=== PATIENT | female | born 1965 | race Caucasian/White ===

== ENCOUNTER 2023-01-05 11:12 | Outpatient (OUT) | payer BC, SELFPAY ==
[2023-01-05 12:01] LABS: Basophils Absolute Auto 0.1 10^3/uL (0.0-0.1); Basophils Percent Auto 0.8 % (0.2-2.0); Eosinophils Absolute Auto 0.2 10^3/uL (0.0-0.7); Eosinophils Percent Auto 2.7 % (0.9-7.0); Hematocrit 43.9 % (36.0-48.0); Hemoglobin 14.3 g/dL (12.0-16.0); Immature Granulocytes Abs Auto 0.02 10^3/uL (0.00-0.03); Immature Granulocytes Pct Auto 0.3 % (0.0-0.5); Lymphocytes Absolute Auto 1.9 10^3/uL (1.2-3.8); Lymphocytes Percent Auto 26.4 % (20.5-60.0); Mean Corpuscular HGB Conc 32.6 g/dL (29.9-35.2); Mean Corpuscular Hemoglobin 31.6 pg (26.7-34.0); Mean Corpuscular Volume 97.1 fL (81.0-99.0); Mean Platelet Volume 10.3 fL (9.5-13.5); Monocytes Absolute Auto 0.5 10^3/uL (0.3-0.8); Monocytes Percent Auto 7.6 % (1.7-12.0); Neutrophils Absolute Auto 4.4 10^3/uL (1.4-6.5); Neutrophils Percent Auto 62.2 % (43.0-75.0); Platelet Count 183 10^3/uL (150-450); Red Blood Count 4.52 10^6/uL (4.20-5.40); Red Cell Distribution Width 13.5 % (11.0-15.0); White Blood Count 7.1 10^3/uL (4.0-11.0)
[2023-01-05 12:07] LABS: Erythrocyte Sedimentation Rate 11 mm/hr (<=30)
[2023-01-05 12:32] LABS: Alanine Aminotransferase 33 U/L (14-59); Albumin Globulin Ratio 1.1; Albumin Level 3.8 g/dL (3.4-5.0); Alkaline Phosphatase 75 U/L (46-116); Anion Gap 12.5; Aspartate Amino Transferase 26 U/L (15-37); BUN Creatinine Ratio 15.7; Bilirubin Total 0.6 mg/dL (0.2-1.0); Calcium 9.3 mg/dL (8.5-10.1); Chloride 104 mmol/L (98-107); Estimated GFR (African America >60 (>=60); Estimated GFR (Non-African Ame >60 (>=60); Globulin 3.4 g/dL; Glucose 81 mg/dL (74-106); Potassium 3.5 mmol/L (3.5-5.1); Sodium 139 mmol/L (136-145); Total Protein 7.2 g/dL (6.4-8.2)
== END 2023-01-05 11:13 | disposition home or self-care (01) ==
LOC: LAB 11:15
PROVIDERS: PCP Nurse Practitioner
DX: M15.0 Primary generalized (osteo)arthritis (principal); Z79.899 Other long term (current) drug therapy
CPT/HCPCS: 36415; 80053; 85025; 85652

== ENCOUNTER 2023-03-21 08:57 | Outpatient (OUT) | payer BC, SELFPAY ==
[2023-03-22 14:14] LABS: ACTH, Plasma 15.9 pg/mL (7.2-63.3)
[2023-03-22 16:11] LABS: Cortisol - AM <0.1 ug/dL (6.2-19.4)
== END 2023-03-21 08:58 | disposition home or self-care (01) ==
LOC: LAB 08:58
PROVIDERS: PCP Nurse Practitioner
DX: E25.0 Congenital adrenogenital disorders associated with enzyme deficiency (principal)
CPT/HCPCS: 36415; 82024; 82533

== ENCOUNTER 2023-04-10 13:50 | Outpatient (OUT) | payer BC, SELFPAY ==
[2023-04-10 14:53] LABS: Basophils Percent Auto 0.6 % (0.2-2.0); Eosinophils Absolute Auto 0.1 10^3/uL (0.0-0.7); Eosinophils Percent Auto 0.9 % (0.9-7.0); Hematocrit 39.8 % (36.0-48.0); Hemoglobin 12.8 g/dL (12.0-16.0); Immature Granulocytes Abs Auto 0.02 10^3/uL (0.00-0.03); Immature Granulocytes Pct Auto 0.3 % (0.0-0.5); Lymphocytes Absolute Auto 0.8 10^3/uL (1.2-3.8); Lymphocytes Percent Auto 11.6 % (20.5-60.0); Mean Corpuscular HGB Conc 32.2 g/dL (29.9-35.2); Mean Corpuscular Hemoglobin 32.6 pg (26.7-34.0); Mean Corpuscular Volume 101.3 fL (81.0-99.0); Mean Platelet Volume 10.7 fL (9.5-13.5); Monocytes Absolute Auto 0.3 10^3/uL (0.3-0.8); Monocytes Percent Auto 4.6 % (1.7-12.0); Neutrophils Absolute Auto 5.7 10^3/uL (1.4-6.5); Platelet Count 171 10^3/uL (150-450); Red Blood Count 3.93 10^6/uL (4.20-5.40); Red Cell Distribution Width 13.4 % (11.0-15.0); White Blood Count 6.9 10^3/uL (4.0-11.0)
[2023-04-10 15:00] LABS: Erythrocyte Sedimentation Rate 21 mm/hr (<=30)
[2023-04-10 16:20] LABS: Alanine Aminotransferase 28 U/L (14-59); Albumin Globulin Ratio 1.2; Albumin Level 3.6 g/dL (3.4-5.0); Alkaline Phosphatase 59 U/L (46-116); Anion Gap 12.7; Aspartate Amino Transferase 22 U/L (15-37); Bilirubin Total 0.5 mg/dL (0.2-1.0); Calcium 8.1 mg/dL (8.5-10.1); Carbon Dioxide 27.4 mmol/L (21.0-32.0); Chloride 104 mmol/L (98-107); Estimated GFR (African America >60 (>=60); Estimated GFR (Non-African Ame >60 (>=60); Globulin 3.1 g/dL; Glucose 112 mg/dL (74-106); Potassium 4.1 mmol/L (3.5-5.1); Sodium 140 mmol/L (136-145); Total Protein 6.7 g/dL (6.4-8.2)
== END 2023-04-10 13:51 | disposition home or self-care (01) ==
PROVIDERS: PCP Nurse Practitioner
DX: M15.0 Primary generalized (osteo)arthritis (principal); Z79.899 Other long term (current) drug therapy
CPT/HCPCS: 36415; 80053; 85025; 85652

== ENCOUNTER 2025-03-30 09:44 | Outpatient (OUT) | payer BC, SELFPAY ==
--- NOTE | 2025-03-30 10:00 | CA_ITS ---
Patient Name: MARY ANGULO MR#: [id number] : 1965 Exam Date: 03/30/2025 Ordering Doctor: DR PEYTON FLYNN M.D. ECHOCARDIOGRAM REPORT PROCEDURE: CA ECHO DOPPLER COMPLETE INDICATIONS: Dizziness, cardiac stent COMPARISON: None. DESCRIPTION: COMPLETE ECHOCARDIOGRAM Real-time transthoracic echocardiography with 2D, M-mode, spectral and color flow Doppler performed. QUALITY: Technical quality was good. LEFT VENTRICLE: Normal chamber size. Proximal septal hypertrophy (sigmoid septum). Normal systolic function. LV EF: Normal left ventricular ejection fraction, (60-65%). DIASTOLIC: Diastolic function is indeterminate. ATRIAL SEPTUM: Visually appears intact. LEFT ATRIUM: Moderate dilatation. RIGHT ATRIUM: Mild dilatation. RIGHT VENTRICLE: Mild chamber dilatation. Normal right ventricular systolic function. TRICUSPID VALVE: Normal mobility and thickness. No stenosis with trivial regurgitation. No evidence of pulmonary hypertension. RVSP 19 mmHg MITRAL VALVE: Normal mobility and thickness. No evidence of mitral valve stenosis. There is no mitral annular calcification. Trivial mitral regurgitation. AORTIC VALVE: Normal trileaflet appearance. No visible sclerosis. Normal leaflet mobility. No evidence of aortic valve stenosis. No aortic regurgitation. AORTIC ROOT: Normal diameter and appearance, measuring 3.5 cm. Ascending aorta is normal in size, measuring 3.2 cm. PULMONIC VALVE: Normal thickness and mobility. No stenosis. Trivial regurgitation. PERICARDIUM: No evidence of pericardial effusion. IVC: Collapses with inspiration. PLEURA: CONCLUSION: 1. The left ventricle is normal in size and exhibits normal systolic function. Estimated LVEF is 60 to 65%. 2. Mildly dilated right ventricle with normal systolic function. 3. Mild to moderate biatrial dilatation. 4. No significant valvular dysfunction. 5. Normal right-sided pressures. Adult Echocardiography Procedure Report Left Ventricle LVEDD (3.7 - 5.6 cm): 4.00 cm LVESD (2.2 - 4.0 cm): 2.79 cm LVIVS thickness (0.6 - 1.2 cm): 1.70 cm LVPW thickness (0.5 - 1.0 cm): 0.99 cm e': 0.09 m/s E - e': 5.93 LVOT Max Gradient: 3.32 mm[Hg] LVOT Area (cm2): 0.91 m/s Peak Velocity (LVOT): 0.91 m/s Mean Velocity (LVOT): 0.59 m/s LVOT Diameter 2.38 cm Left Ventricular Ejection Fraction: 60-65% Left Atrium LA Volume Index (2D A2C): 46.84 ml/m2 Left Atrium Systolic Dimension: 3.61 cm Mitral Valve MV E to A Ratio: 0.93 Mitral Valve A-Wave Peak Velocity: 0.56 m/s Mitral Valve E-Wave Peak Velocity: 0.52 m/s Right Ventricle Aorta AO Root Diam: 3.54 cm Ascending Ao Diam: 3.20 cm Aortic Valve Tricuspid Valve Peak Velocity (Regurgitant Flow): 1.86 m/s, 2.01 m/s Pulmonic Valve Peak Gradient: 4.51 mm[Hg], 5.27 mm[Hg] Right Atrium Right Atrium Systolic Pressure: 43.51 ml, 43.51 ml Dictated by: Mason Higgins M.D. on 03/30/2025 at 17:39 Approved by: Mason Higgins M.D. on 03/30/2025 at 17:44
== END 2025-03-30 09:45 | disposition home or self-care (01) ==
LOC: CARD 09:48
PROVIDERS: PCP Nurse Practitioner; Visit Provider Internal Medicine Interventional Cardiology
DX: I25.10 Atherosclerotic heart disease of native coronary artery without angina pectoris (principal); I25.83 Coronary atherosclerosis due to lipid rich plaque; Z95.5 Presence of coronary angioplasty implant and graft; R42 Dizziness and giddiness
CPT/HCPCS: 93306

== ENCOUNTER 2025-07-01 07:27 | Outpatient (OUT) | payer BC, SELFPAY ==
--- OUTSIDE RECORDS SUMMARY | 2025-06-30 23:59 | XMS_ITS | Continuity of Care Document ---
Author Organization [facility] Address Unknown Care Team Providers Care Furnishings Conservator Name Role Phone Irena Sagastume Primary Care Physician Encounter FT_FIN [id number] Date(s): 06/30/25 - 06/30/25 [place] [address] [address] [place], [place] [address] Discharge Disposition: Home (Routine DC) Attending Physician: Irena Ardon Admitting Physician: Irena Ardon Encounter Type: Lab Drop off Allergies, Adverse Reactions, Alerts SubstanceCriticalitySeverityReactionReaction SeverityStatusatorvastatinOther: See CommentsActiveshellfishUnknownActive Treatment Plan Diagnostic Tests Pending * Urine Culture 06/30/25 Immunizations Given and Recorded VaccineDateStatusRefusal Reasoninfluenza virus vaccine, inactivated08/03/23 Recordedinfluenza virus vaccine, jooixudhvac96/11/31JldatkkeLHRH-HlK-4 (COVID- 19) mRNAMUL.ORD![id number]-KyO-1 (COVID-19) mRNA BNT-162b2 vax 06/24/2129FwcrqekqCPQS-OoD-1 (COVID-19) mRNA BNT-162b2 vax5//20KdxhfutgKVIW-XiA-4 (COVID-19) mRNA BNT-162b2 vax4//Recorded Medications cephalexin 500 mg Cap 500 mg = 1 cap(s), Oral, q12hr, # 20 cap(s), Refills(s) 0, Pharmacy: [facility]/pharmacy #[id number], 153, cm, 06/30/25 11:19:00 EST, Height/Length Dosing, 67.3, kg, 06/30/25 11:19:00 EST, Weight Dosing Start Date: 06/30/25 Status: Ordered Medication Dispense Status: Completed Quantity: 20.0 Unit: cap(s) Total Allowed Fills: 1 Fills Dispensed: 0 dexamethasone 0.5 mg Tab 0.5 mg = 1 tab(s), Oral, Daily, Refills(s) 0 Start Date: 11/28/23 Status: Ordered Medication Dispense Status: Completed Total Allowed Fills: 1 Fills Dispensed: 0 DOSOKAP 137.5-200 MCG TABLET TAKE 1 TABLET BY MOUTH EVERY DAY Start Date: 10/31/22 Status: Ordered Medication Dispense Status: Completed Total Allowed Fills: 1 Fills Dispensed: 0 estradiol 0.1 mg/g Vag Crm APPLY VAGINALLY DAILY AT BEDTIME Start Date: 10/31/22 Status: Ordered Medication Dispense Status: Completed Total Allowed Fills: 1 Fills Dispensed: 0 gabapentin 100 mg Cap See Instructions, TAKE 2 CAPSULES BY MOUTH AT BEDTIME, # 60 cap(s), Refills(s) 5, [id number], cm, 06/30/25 11:19:00 EST, Height/Length Dosing, 67.3, kg, 06/30/25 11:19:00 EST, Weight Dosing Start Date: 06/30/25 Status: Ordered Medication Dispense Status: Completed Quantity: 60.0 Unit: cap(s) Total Allowed Fills: 6 Fills Dispensed: 0 hydroxychloroquine 200 mg Tab 90 EA, 0 Refill(s), TAKE 1 TABLET BY MOUTH EVERY DAY, Refills(s) 0 Start Date: 05/27/24 Status: Ordered Medication Dispense Status: Completed Total Allowed Fills: 1 Fills Dispensed: 0 ondansetron 4 mg Tab 4 mg = 1 tab(s), TAKE 2 TABLETS BY MOUTH EVERY 8 HOURS NEEDED FOR NAUSEA OR VOMITING FOR UP TO 7DAYS Start Date: 03/28/24 Status: Ordered Medication Dispense Status: Completed Total Allowed Fills: 1 Fills Dispensed: 0 oxybutynin 5 mg Tab 5 mg = 1 tab(s), Oral, Bedtime, # 30 tab(s), Refills(s) 11, Pharmacy: [facility]/pharmacy #[id number], 153, cm, 04/17/24 12:54:00 EDT, Height/Length Dosing, 74.1, kg, 04/17/24 12:54:00 EDT, Weight Dosing Start Date: 04/17/24 Status: Ordered Medication Dispense Status: Completed Quantity: 30.0 Unit: tab(s) Total Allowed Fills: 12 Fills Dispensed: 0 rosuvastatin 40 mg Tab 40 mg = 1 tab(s), Oral, Daily, # 90 tab(s), Refills(s) 0 Start Date: 10/31/22 Status: Ordered Medication Dispense Status: Completed Quantity: 90.0 Unit: tab(s) Total Allowed Fills: 1 Fills Dispensed: 0 semaglutide Refills(s) 0 Start Date: 03/28/24 Status: Ordered Medication Dispense Status: Completed Total Allowed Fills: 1 Fills Dispensed: 0 traMADOL 50 mg Tab TAKE 1 TABLET BY MOUTH TWICE A DAY Start Date: 10/31/22 Status: Ordered Medication Dispense Status: Completed Total Allowed Fills: 1 Fills Dispensed: 0 Problem List ConditionConfirmationCourseEffective DatesStatusHealth StatusInformantBMI 31.0-31.9,adultConfirmedActiveCongenital adrenal hyperplasiaConfirmedActiveCAD (coronary artery disease)ConfirmedActiveAtherosclerotic heart disease of [place] coronary artery with unspecified angina pectorisConfirmedActiveFatigueConfirmed ActiveHot flashesConfirmedActiveGanglion cyst of tendon sheath of right hand ConfirmedActiveGERD (gastroesophageal reflux disease)ConfirmedActive HyperlipidemiaConfirmedActiveUrinary frequencyConfirmedActiveSkin infection ConfirmedActiveInflammatory polyarthropathyConfirmedActiveMass of right hand ConfirmedActiveMenopausal symptomsConfirmedActiveClass 1 obesity with body mass index (BMI) of 31.0 to 31.9 in adultConfirmedActivePrimary osteoarthritis of left kneeConfirmedActiveBMI 28.0-28.9,adultConfirmedActiveAnnual physical exam ConfirmedActiveRecurrent UTIConfirmedActiveSwelling of joint, hand, right ConfirmedActiveUrinary tract infectionConfirmedActiveVaginal odorConfirmedActive Procedures ProcedureDateRelated DiagnosisBody SiteStatusmiddle chest skin cancer removed 02/13/2330XvevzcfuaUcbrvcsqesf2VysnchwaqQGS - Nwqitzehssmhpnktlxwvmivsjc0Nfrvzxjsg History of placement of stent for coronary artery disease (situation)Completed Laparoscopic pepxjtshuzxnpmp5OpsywauobMjqubukdinxha of qoxt4Dithahwma 1Dr. Wiecek [address] 2Dr. Wiecek 2012 [id number] Social History Social History TypeResponseSmoking StatusFormer smoker, quit more than 30 days ago; Tobacco Use: quit 22 years ago entered on: 06/13/24Birth SexFemaleSex RepresentationFemale (finding) Patient Care team information Care Team Personnel Name: Irena Ardon Position: FT Ambulatory - Primary Care - ERLINDA Member Role: Primary Care Physician [address]: [address] [place] [address]- Telecom: Care Team Related Persons Name: MARY ANGULO Name: MARY ANGULO Name: MARY ANGULO Name: SONYA QUINTERO Insurance Providers Guarantor name: MARY ANGULO Health Plan Information #: 1 Payer: Alonso Payer Identifier: [id number] Member Number: [id number] Group Number: [id number] Subscriber Identifier: [id number] Relationship to Subscriber: spouse Coverage Type: PRIVATE HEALTH INSURANCE Coverage Verification Date: Telecom: [phone] Address: [facility] [id number]
--- OUTSIDE RECORDS SUMMARY | 2025-06-30 23:59 | XMS_ITS | Continuity of Care Document ---
Author Organization [facility] Address [address] [place] [id number] Care Team Providers Care Medical Surgical Tech Name Role Phone Irena Sagastume Primary Care Physician Encounter FT_AMBFIN [id number] Date(s): 06/30/25 - 06/30/25 [facility] [address] [place] [address]- Encounter Diagnosis Dysuria(Discharge Diagnosis) - 06/30/25 BMI 28.0-28.9,adult(Discharge Diagnosis) - 06/30/25 Discharge Disposition: Home (Routine DC) Attending Physician: Irena Ardon Encounter Type: Clinic Allergies, Adverse Reactions, Alerts SubstanceCriticalitySeverityReactionReaction SeverityStatusatorvastatinOther: See CommentsActiveshellfishUnknownActive Treatment Plan Diagnostic Tests Pending * Cortisol 06/30/25 * DHEAS 06/30/25 * Estradiol Level 06/30/25 * Estrone Lvl 06/30/25 * Progesterone Level 06/30/25 * Sex Horm Bind Glob 06/30/25 * Testosterone Level Free 06/30/25 * Testosterone Level Total 06/30/25 * Vitamin D 25 Hydroxy 06/30/25 Functional Status 06/30/25 Symptomatic After Exposure to ContagionNoSymptomatic After Travel High-Risk Area NoDroplet, Contact Isolation VerificationN/AAirborne,Contact Isolation VerificationN/A Immunizations Given and Recorded VaccineDateStatusRefusal Reasoninfluenza virus vaccine, inactivated08/03/23 Recordedinfluenza virus vaccine, vlhakmbtikl39/11/74TeziahgmXIDQ-RkH-2 (COVID- 19) mRNAMUL.ORD![id number]/05/3011PzqtflgtSHPO-ZmZ-3 (COVID-19) mRNA BNT-162b2 vax 12/32XgxdwuoyOUOG-AxS-6 (COVID-19) mRNA BNT-162b2 vax5//20SrwcnzojQHCB-HiN-1 (COVID-19) mRNA BNT-162b2 vax4/15/Recorded Medications cephalexin 500 mg Cap 500 mg = 1 cap(s), Oral, q12hr, # 20 cap(s), Refills(s) 0, [id number], cm, 06/30/25 11:19:00 [...] BEDTIME, # 60 cap(s), Refills(s) 5, Pharmacy: [facility]/pharmacy #[id number], 153, cm, 06/30/25 11:19:00 EST, Height/Length [...] Bedtime, # 30 tab(s), Refills(s) 11, Pharmacy: [facility]/pharmacy #[id number], 153, cm, 04/17/24 12:54:00 EDT, Height/Length [...] hyperplasiaConfirmedActiveCAD (coronary artery disease)ConfirmedActiveAtherosclerotic heart disease of [place] coronary artery with unspecified angina pectorisConfirmedActiveFatigueConfirmed ActiveHot [...] ProcedureDateRelated DiagnosisBody SiteStatusmiddle chest skin cancer removed 02/13/2325NauucnbljDknmddgvuxb1WwuygirppOFW - Eiehbstaifiabaengazfuyaudh4Bmzhbyrig History of placement of stent for coronary artery disease (situation)Completed Laparoscopic lzwppdxgkcjypem4XginssariVdikrtdmzttye of qfwk5Aodacmztu 1Dr. Wiecek 2011 2Dr. Wiecek 2011 [id number] Vital Signs Most recent to oldest [Reference Range]:1Temperature Temporal Artery [36.3-37.8 DegC]36.5 DegC (06/30/25 11:16 AM)Peripheral Pulse Rate [60-100 bpm]84 bpm (06/30/25 11:16 AM)Respiratory Rate [14-20 br/min]18 br/min (06/30/25 11:16 AM)Blood Pressure [89-139/59-89 mmHg]116/66mmHg (06/30/25 11:16 AM)Blood Pressure LocationLeft arm (06/30/25 11:16 AM)SpO2 [89 %]98 % (06/30/25 11:16 AM) Social History Social History TypeResponseSmoking StatusFormer smoker, quit more than 30 days ago; Tobacco Use: quit 22 years ago entered on: 06/13/24Birth SexFemaleSex RepresentationFemale (finding) Patient Care team information Care Team Personnel Name: Irena Ardon Position: FT Ambulatory - Primary Care - ERLINDA Member Role: Primary Care Physician Address: [address] [place] [phone]- Telecom: Care Team Related Persons Name: MARY ANGULO Name: MARY ANGULO Name: MARY ANGULO Name: SONYA QUINTERO Insurance Providers Guarantor name: MARY ANGULO [facility] Plan Information #: 1 Payer: Alonso Payer Identifier: [id number] Member Number: [id number] Group Number: [id number] Subscriber Identifier: [id number] Relationship to Subscriber: spouse Coverage Type: PRIVATE HEALTH INSURANCE Coverage Verification Date: Telecom: [phone] Address: [address]
--- OUTSIDE RECORDS SUMMARY | 2025-07-01 07:34 | XMS_ITS | Clinical Summary ---
Author Organization [facility] Address [address] [place] [address] Care Team Providers Care Correctional Medicine Physician Name Role Phone Peggy Bravo MD Primary Care Provider [phone] Kyler Wylie DO Unavailable [phone] Allergies Active AllergyReactionsCriticalityNoted DateCommentsAtorvastatin CalciumOther: See CyyfwppeJvseax57/29/2014 Leg cramps Medications MedicationSigDispense QuantityRefillsLast FilledStart DateEnd DateStatus dexamethasone (DECADRON) 0.5 mg tablet TAKE 1 TABLET DAILY WITH BREAKFAST 90 tablet Active vitamin D3-vitamin K2 (DOSOQUIN) 5,500-200 unit-mcg tab Take 1 tablet by mouth once daily.07/17/2019Active Etodolac 500 mg tablet Take 2 tablets by mouth twice daily.08/21/2019Active rosuvastatin (CRESTOR) 20 mg tablet Take 1 tablet by mouth once daily. 90 tablet Active hydrocortisone (CORTEF) 10 mg tablet Take 1 tablet by mouth once daily. Take 3 tablets as needed 40 tablet 11012/29/2019Active Active Problems ProblemNoted DateDiagnosed DateObesity (BMI 30-39.9)06/06/2017Esotropia, bkscklxxypy46/23/2017 Overview (04/30/2017): Added automatically from request for surgery [id number] Lyqrfvvr46/23/2017 Overview (04/30/2017): Added automatically from request for surgery [id number] Ktfkcasptvrsmvweibtr81/25/2014S/P coronary artery stent boqatbnee75/25/2014 Statin vtyinkzbgjy79/25/2014Elevated Lp(a)04/02/2014Congenital adrenal knnfugrqfxg35/29/8392Thubwkkwtoievo99/29/2014CAD (coronary artery disease) 03/06/2014 Resolved Problems ProblemNoted DateDiagnosed DateResolved VjmiLufueaa57 Family History Medical HistoryRelationCommentsCoronary Artery DiseaseFatherdied age 80 prostate CA; CAD age 70'sNo Ocular DiseaseFatherNo Ocular DiseaseMothercarcinoid tumor Motherdied age 77 carcinoid tumorOtherOtherFH of CAHRelationStatusCommentsFather MotherOther Social History Tobacco UseTypesPacks/DayYears UsedDateSmoking Tobacco: FormerCigarettes0.520 07/09/1981 - 07/09/2001Smokeless Tobacco: Never Tobacco Cessation:Counseling Given: No Alcohol UseStandard Drinks/WeekCommentsYes0 (1 standard drink = 0.6 oz pure alcohol)none recentlyArea Deprivation IndexAnswerDate RecordedNational Score (1- 100), lower number is lower riskNot on file06/15/2020State Score (1-10), lower number is lower riskNot on file06/15/2020Data from: https://www.neighborhoodatlas.[facility].edu/. Last address used for calculationNot on file06/15/2020CommentsNoSex and Gender Information ValueDate RecordedSex Assigned at BirthNot on fileLegal FhyNmjqht13/02/2012 9:49 AM ESTGender IdentityNot on fileSexual OrientationNot on fileOccupationIndustry Job Start DateJob End Datebusiness ownerNot on fileNot on fileNot on file Last Filed Vital Signs Vital SignReadingTime TakenCommentsBlood Gftfgvbn669/7002 10:17 AM EST Fczdd894308/21/2019 10:17 AM GMFTrwrahjwifp16.2 ??C (97.2 ??F)06/18/2017 3:00 PM ESTRespiratory Dwww103908/19/2016 3:30 PM ESTOxygen Piseudfkqh27%06/18/2017 3:30 PM ESTInhaled Oxygen Concentration--Nvjkxj81.7 kg (200 lb)02/05/2020 4:21 PM EDT Evwcfg479.9 cm (5' 1 )02/05/2020 4:21 PM EDTBody Mass Index37.7902/05/2020 4:21 PM EDT Plan of Treatment Health MaintenanceDue DateLast DoneCommentsAnxiety Bsetuozov96/07/1981Depression Ppadakyop81/07/1981HIV Oqtpowehx67/07/1981Hepatitis C Ewsqsulmu37/07/1981 DTaP,Tdap,Td Vaccine (1 - Tdap)1982Cervical Cancer Pnyiquqyh62/07/1984 Mammogram Yhfkdtjuh99/07/2003CT Lfxkgykyiibp91/07/2008Cologuard (FIT-DNA) 02/13/20088205Juwmobtumze49/07/2008Colorectal Cancer Kngjyhfgz50/07/2008Fecal Occult Blood02/13/20082147Oeciwyonokgfr84/07/2008Pneumococcal Vaccine: 50+ (1 of 1 - PCV) 2013Shingrix Vaccine (1 of 2)2013Diabetes Qkqkhbarr51/14/2022 05/22/2019, 05/22/2019, 10/01/2018, Additional history existsLipid Screening 3108/04/2017, 06/27/2016, 10/08/2015, Additional history existsCovid-19 Vaccine (1 - 2024- season)2025Influenza Vaccine (#1)2025RSV Vaccine (1 - 1-dose 75+ series)2038 Procedures Procedure NamePriorityDate/TimeAssociated DiagnosisCommentsCOMPREHENSIVE METABOLIC UTRVLVoevhkz57/14/2019 12:05 PM EST Hyperlipidemia, unspecified hyperlipidemia type Congenital adrenal hyperplasia (HCC) Statin intolerance LIPID PANEL, DZLREMZDdbxnrv84/27/2018 12:53 PM EST Congenital adrenal hyperplasia (HCC) Hyperlipidemia, unspecified hyperlipidemia type Coronary artery disease involving pechanga coronary artery of pechanga heart without angina pectoris Hypertriglyceridemia Statin intolerance 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 from Last 3 Months or Most Recently Relevant to Health Maintenance Results * (ABNORMAL) COMP METABOLIC PANEL (05/22/2019 12:05 PM EST)ComponentValueRef RangeTest MethodAnalysis TimePerformed AtPathologist SignatureProtein, Total 6.46.3 - 8.0 g/dL05/22/2019 6:44 PM ESTGal[facility] Hospitalveland Clinic LaboratoriesAlbumin3.9 3.9 - 4.9 g/dL05/22/2019 6:44 PM ESTK[facility] LaboratoriesCalcium9.48.5 - 10.2 mg/dL05/22/2019 6:44 PM ESTK[facility] Health [facility] LaboratoriesBilirubin, Total0.50.2 - 1.3 mg/dL05/22/2019 6:44 PM ESTK[facility] Laboratories Alkaline Pekzoqbgtab3838 - 123 U/L107/22/2018 6:44 PM ESTK[facility]tering [facility] OlcfgutsjipeLNL4242 - 35 U/L107/22/2018 6:44 PM ESTK[facility] KfhquvkkqtclKljjnhn47(L)74 - 99 mg/dL05/22/2019 6:44 PM [facility] LaboratoriesComment: The [place] Diabetes Association (ADA) provides guidance for cutoff values for fasting glucose and random glucose. The ADA defines fasting as no caloric intake for at least 8 hours. Fasting plasma glucose results between 100 to 125 mg/dL indicate increased risk for diabetes (prediabetes). Fasting plasma glucose results greater than or equal to 126 mg/dL meet the criteria for diagnosis of diabetes. In the absence of unequivocal hyperglycemia, results should be confirmed by repeat testing. In a patient with classic symptoms of hyperglycemia or hyperglycemic crisis, random plasma glucose results greater than or equal to 200 mg/dL meet the criteria for diagnosis of diabetes. Reference: Standards of Medical Care in Diabetes 2016, [place] Diabetes Association. Diabetes Care. 2016.39(Suppl 1). ANM212 - 21 mg/dL05/22/2019 6:44 PM ESTKettering Health [facility] LaboratoriesCreatinine 0.810.58 - 0.96 mg/dL05/22/2019 6:44 PM [facility] LaboratoriesSodium 420392 - 144 mmol/L107/22/2018 6:44 PM ESTJefferson Clinic LaboratoriesPotassium 4.03.7 - 5.1 mmol/L107/22/2018 6:44 PM ESTKettering Health [facility] LaboratoriesChloride 107(H)97 - 105 mmol/L107/22/2018 6:44 PM [facility] JbleabuhypclPQ44423 - 30 mmol/L107/22/2018 6:44 PM [facility] LaboratoriesAnion Jls869 - 18 mmol/L107/22/2018 6:44 PM [facility] GvrnaqlwsgpaQBG535 - 38 U/L 05/22/2019 6:44 PM [facility] LaboratorieseGFR->60 05/22/2019 6:44 PM [facility] LaboratorieseGFR-All Other Races>60. 05/22/2019 6:44 PM [facility] LaboratoriesComment: eGFR (Estimated GFR) Units of measure: mL/min/1.73 meters squared eGFR is derived from the reexpressed MDRD Study equation using the following parameters: serum creatinine, age, gender and race. The creatinine assay has been calibrated to be traceable to IDMS. An eGFR <60 mL/min/1.73m2 for >3 months is consistent with chronic kidney disease. Refer to KDOQI guidelines for clinical interpretation. In patients with unstable renal function, e.g. those with acute kidney injury, the eGFR may not accurately reflect actual GFR. Specimen (Source)Anatomical Location / LateralityCollection Method / Volume Collection TimeReceived TimeBlood specimen (specimen)BLOOD SPECIMEN / Unknown 05/22/2019 12:05 PM EST05/22/2019 12:07 PM EST Narrative Authorizing ProviderResult TypeResult StatusBetul Rosibel Reece MDLABORATORYFinal ResultPerforming OrganizationAddressCity/State/ZIP CodePhone Number [facility] [address] [facility] [place] [address] [facility] [address] [place] [address] * (ABNORMAL) LIPID PANEL BASIC (06/04/2018 12:53 PM EST)ComponentValueRef Range Test MethodAnalysis TimePerformed AtPathologist SignatureCholesterol, Peyzh382 (H)<200 mg/dL06/04/2018 5:28 PM [facility] LABORATORYComment: <200 mg/dL, Desirable 200-239 mg/dL, Borderline high >239 mg/dL, High Lriyzpaiofck633(H)<150 mg/dL06/04/2018 5:28 PM [facility] LABORATORYComment: <150 mg/dL, Normal 150-199 mg/dL, Borderline high 200-499 mg/dL, High >499 mg/dL, Very high HDL Awfniwtvroc68>39 mg/dL06/04/2018 5:28 PM [facility] Comment: 40-59 mg/dL, Acceptable >59 mg/dL, High: Negative risk factor for coronary heart disease <40 mg/dL, Low: Positive risk factor for coronary heart disease LDL Cholesterol, Narnjsdhhz395(H)<100 mg/dL06/04/2018 5:28 PM [facility] LABORATORYComment: <100 mg/dL, Optimal 100-129 mg/dL, Near optimal/above optimal 130-159 mg/dL, Borderline high 160-189 mg/dL, High >189 mg/dL, Very high Secondary prevention optimal LDL Cholesterol levels are recommended to be < 70 mg/dL Non HDL Ytlqpucqhsz667(H)<130 mg/dL06/04/2018 5:28 PM [facility] LABORATORYComment: <130 mg/dL, Optimal 130-159 mg/dL, Near optimal/above optimal 160-189 mg/dL, Borderline high 190-219 mg/dL, High >219 mg/dL, Very high Secondary prevention optimal non HDL Cholesterol levels are recommended to be < 100 mg/dL Fasting Czbo04iam74/27/2018 12:55 PM [facility] LABORATORYVLDL Brifrbsmuaf06(H)<30 mg/dL06/04/2018 5:28 PM [facility] TC:HDL Ratio3.86<5.10108/04/2017 5:28 PM [facility] LDL:HDL Ratio2.11<2.5406/04/2018 5:28 PM [facility] Comment: Reference: 1. National Cholesterol Education Program ATP III Guideline At-A-Glance Quick Desk Reference: National Heart, Lung, and Blood [place]. National Institutes of Health. 2001: NIH Publication No. 01-3305. 2. An International Atherosclerosis Society position paper: global recommendations for the management of dyslipidemia: executive summary, Atherosclerosis. 2014: 232(2):410-413. Specimen (Source)Anatomical Location / LateralityCollection Method / Volume Collection TimeReceived TimeBlood specimen (specimen)06/04/2018 12:53 PM EST 06/04/2018 12:55 PM EST Narrative Authorizing ProviderResult TypeResult StatusBetgalina Reece MDLABORATORYFinal ResultPerforming OrganizationAddressCity/State/ZIP CodePhone Number [facility] [address] [place] [address] from Last 3 Months or Most Recently Relevant to Health Maintenance Insurance Care Teams Team MemberRelationshipSpecialtyStart DateEnd Date Peggy Bravo MD [address] [place] [address] PCP - General09/20/05 Kyler Wylie DO [facility] [address] [place] [address] ReferringOphthalmology11/27/16
--- OUTSIDE RECORDS SUMMARY | 2025-07-01 07:34 | XMS_ITS | Clinical Summary ---
Author Organization [facility] Address [address] 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 Name Role Phone Peggy Bravo MD Primary Care Provider [phone] Allergies Active AllergyReactionsCriticalityNoted DateCommentsAtorvastatinUnknown,Other Etcvpd0603/05/2014 Leg cramps Leg cramps Shellfish Containing GjcovzydWwhmiqt39/13/2024Shellfish FobvlohBixhzgm68/19/2022 Medications MedicationSigDispense QuantityRefillsLast FilledStart DateEnd DateStatus aspirin 81 mg chewable tablet Chew and swallow 1 tablet (81 mg) once daily.03/09/2021ctive rosuvastatin (Crestor) 40 mg tablet Take 1 tablet (40 mg) by mouth once daily.08/23/2022ctive traMADol (Ultram) 50 mg tablet Take 1 tablet (50 mg) by mouth 2 times a day.Active ondansetron (Zofran) 4 mg tablet Indications:Adrenal hyperplasia syndrome, congenital (HHS-HCC)TAKE 2 TABLETS BY MOUTH EVERY 8 HOURS NEEDED FOR NAUSEA OR VOMITING FOR UP TO 7 DAYS 9 tablet 5Active dexAMETHasone (Decadron) 0.5 mg tablet Indications:Adrenal hyperplasia, congenital (HHS-HCC)Take 1 tablet (0.5 mg) by mouth once daily. 90 tablet 5Active semaglutide (weight loss) Indications:Class 3 severe obesity due to excess calories with body mass index (BMI) of 40.0 to 44.9 in adult, unspecified whether serious comorbidity present ([facility]-HCC)Inject 1.8mg under the skin once a week 2 mL 5125Active semaglutide (weight loss) Indications:Adrenal hyperplasia, congenital (HHS-HCC)1.2MG-Semaglutide Base 1.2mg Niacinamide 0.66mg Methylcobalamin 2.6mcg/0.33mL 2 mL 505108/11/2024Discontinued(Reorder) Active Problems ProblemNoted DateDiagnosed DateBMI 27.0-27.9,adult02/19/2025drenal hyperplasia, bzigukeohz95/14/2025 Family History Medical HistoryRelationNameCommentsCoronary artery diseaseFatherProstate cancer FatherCongenital adrenal hyperplasiaSisterRelationNameStatusCommentsFather DeceasedSister Social History Tobacco UseTypesPacks/DayYears UsedDateSmoking Tobacco: FormerCigarettes Smokeless Tobacco: NeverAlcohol UseStandard Drinks/WeekCommentsNot Currently0 (1 standard drink = 0.6 oz pure alcohol)PHQ-2AnswerDate RecordedPatient Health Questionnaire-2 Mtpoa242CommentsUnknownSex and Gender InformationValueDate RecordedSex Assigned at BirthNot on fileLegal SexFemale 06/02/2022 9:41 AM ESTGender IdentityNot on fileSexual OrientationNot on file Last Filed Vital Signs Vital SignReadingTime TakenCommentsBlood Jchvytfp918/9108/21/2023 10:00 AM EST Mqile2167/13/2024 10:00 AM SMPJfpypettvic45.5 ??C (97.7 ??F)08/21/2023 9:13 AM ESTRespiratory Mikh106708/21/2023 9:13 AM ESTOxygen Saturation--Inhaled Oxygen Concentration--Yaxxdd70.9 kg (140 lb 12.8 oz)02/19/2025 11:22 AM NSXXervsp747.9 cm (5' 1 )02/19/2025 11:22 AM EDTBody Mass Index26.6002/19/2025 11:22 AM EDT Plan of Treatment DateTypeDepartmentCare Team (Latest Contact Info)Moawrrmvntx59/20/2026 11:30 AM [facility] [address] [facility] [address] [place] [phone] [place] [address] Department of Medicine-Endocrinology [place] [id number] Health MaintenanceDue DateLast DoneCommentsCT Rcstffjlrhyq1963Colonoscopy 1963Colorectal Cancer Fhqdjcnko1963FIT-DNA (Cologuard)1963FIT 1963HIV Trasrfjuh1963Lipid Panel02/12/19638940Fcprstyuoizfl1963 Yearly Adult Kvcqmemj1963MMR Vaccines (1 of 1 - Standard series)02/13/1964 Hepatitis C Soyvhutzf22/07/1981Cervical Cancer Xfondazhb32/07/1984HPV/Cotest 02/13/1984Pap Smear02/13/1984DTaP/Tdap/Td Vaccines (1 - Tdap)1985Mammogram 2003Pneumococcal Vaccine (1 of 1 - PCV)2013RSV High Risk: (Elderly (60+) or Population) (1 - Risk 50-74 years 1-dose series)2013 Zoster Vaccines (1 of 2)2013COVID-19 Vaccine (3 - season) /, 05/19/2022Influenza Vaccine (#1)501/, 2Diabetes Yvodwotnq10/, 06/07/2022HIB VaccinesAged Out No longer eligible based on patient's age to complete this topicHPV VaccinesAged OutNo longer eligible based on patient's age to complete this topicHepatitis A VaccinesAged OutNo longer eligible based on patient's age to complete this topic Hepatitis B VaccinesAged OutNo longer eligible based on patient's age to complete this topicIPV VaccinesAged OutNo longer eligible based on patient's age to complete this topicMeningococcal VaccineAged OutNo longer eligible based on patient's age to complete this topicRotavirus VaccinesAged OutNo longer eligible based on patient's age to complete this topic Procedures Procedure NamePriorityDate/TimeAssociated DiagnosisCommentsCOMPREHENSIVE METABOLIC FTRBPVaazdld00/13/2024 10:40 AM EST Class 3 severe obesity due to excess calories with serious comorbidity and body mass index (BMI) of40.0 to 44.9 in adult (Multi) Adrenal hyperplasia syndrome, congenital (HHS-HCC) from Last 3 Months or Most Recently Relevant to Health Maintenance Results * (ABNORMAL) Comprehensive Metabolic Panel (08/21/2023 10:40 AM EST)Component ValueRef RangeTest MethodAnalysis TimePerformed AtPathologist SignatureGlucose 59(L)74 - 99 mg/dL LAB CHEMISTRY METHOD 08/21/2023 5:12 PM ESTEN[facility] OISHiqpqx729710 - 145 mmol/L LAB CHEMISTRY METHOD 08/21/2023 5:12 PM ESTENCOM[facility] LABPotassium4.13.5 - 5.3 mmol/L LAB CHEMISTRY METHOD 08/21/2023 5:12 PM ESTEN[facility] EZRKlchzooa39042 - 107 mmol/L LAB CHEMISTRY METHOD 08/21/2023 5:12 PM ESTEN[facility] EECRnftdonnunt4957 - 32 mmol/L LAB CHEMISTRY METHOD 08/21/2023 5:12 PM ESTEN[facility] LABAnion Fic0484 - 20 mmol/L LAB CHEMISTRY METHOD 08/21/2023 5:12 PM ESTEN[facility] LABUrea Uxfeyoqt093 - 23 mg/dL LAB CHEMISTRY METHOD 08/21/2023 5:12 PM ESTFIRST[facility] LABCreatinine0.700.50 - 1.05 mg/dL LAB CHEMISTRY METHOD 08/21/2023 5:12 PM ESTEN[facility] LABeGFR>90>60 mL/min/1.73m*2 LAB CHEMISTRY METHOD 08/21/2023 5:12 PM ESTFIRSTHE[facility] LABComment: Calculations of estimated GFR are performed using the 2020 CKD-EPI Study Refit equation without therace variable for the IDMS-Traceable creatinine methods. https://jasn.asnjournals.org/content//ASN.5303792319 Mclrbsa54.28.6 - 10.6 mg/dL LAB CHEMISTRY METHOD 08/21/2023 5:12 PM ESTEN[facility] LABAlbumin4.43.4 - 5.0 g/dL LAB CHEMISTRY METHOD 08/21/2023 5:12 PM [facility] LABAlkaline Cvuvrihzsgl1964 - 136 U/L LAB CHEMISTRY METHOD 08/21/2023 5:12 PM [facility] LABTotal Protein7.36.4 - 8.2 g/dL LAB CHEMISTRY METHOD 08/21/2023 5:12 PM [facility] WNZLIP365 - 39 U/L LAB CHEMISTRY METHOD 08/21/2023 5:12 PM [facility] LABBilirubin, Total0.70.0 - 1.2 mg/dL LAB CHEMISTRY METHOD 08/21/2023 5:12 PM [facility] JVKFZX420 - 45 U/L LAB CHEMISTRY METHOD 08/21/2023 5:12 PM [facility] LABComment:Patients treated with Sulfasalazine may generate falsely decreased results for ALT.Specimen (Source)Anatomical Location / LateralityCollection Method / VolumeCollection TimeReceived TimeBloodVenous blood specimen / UnknownVenipuncture / Dofcunq9008/21/2023 10:40 AM EST08/21/2023 10:40 AM EST Narrative Authorizing ProviderResult TypeResult StatusBetgalina Reece AKLAB BLOOD ORDERABLESFinal ResultPerforming OrganizationAddressCity/State/ZIP CodePhone Number [facility] [address] [place] [address] from Last 3 Months or Most Recently Relevant to Health Maintenance Insurance Care Teams Team MemberRelationshipSpecialtyStart DateEnd Date Peggy Bravo MD [address] Peggy Bravo [place] [address] [facility] - Ooepcyi01/30/22
--- OUTSIDE RECORDS SUMMARY | 2025-07-01 07:34 | XMS_ITS | Clinical Summary ---
Author Organization [facility] Address [address] [place] [address] Care Team Providers Care Freezer Person Name Role Phone TanikaIrena fong [employer] Primary Care Provider [phone] Allergies Active AllergyReactionsCriticalityNoted DateCommentsAtorvastatinOtherMedium 03/06/2014 Leg cramps Shellfish Hvvpelw9006/26/20222220MydpynndrSipmn27/16/2024 Fatigue, myalgias Medications MedicationSigDispense QuantityRefillsLast FilledStart DateEnd DateStatus aspirin 81 mg chewable tablet in the morning.03/09/2021ctive gabapentin (Neurontin) 100 mg capsule Take 200 mg by mouth if needed.05/09/2022ctive Dosoquin 5,500-200 unit-mcg tablet Take 1 tablet by mouth in the morning.07/12/2021ctive predniSONE (Deltasone) 5 mg tablet Take 5 mg by mouth in the morning.12/28/2022ctive traMADol (Ultram) 50 mg tablet Take 50 mg by mouth if needed in the morning and at bedtime.11/29/2022ctive semaglutide, weight loss, (Wegovy) 0.25 mg/0.5 mL pen injector Inject 0.5 mg under the skin once a week.10/05/2023ctive ezetimibe (Zetia) 10 mg tablet Indications:Coronary artery disease involving eagle coronary artery of eagle heart without angina pectoris,Mixed hyperlipidemiaTake 1 tablet (10 mg) by mouth in the morning. 30 tablet 5001/30/2024ctive Additional Information Patient not taking.Reported on 03/04/2025 dexAMETHasone (Decadron) 0.5 mg tablet Take 0.5 mg by mouth in the morning.03/21/2024ctive hydroxychloroquine (Plaquenil) 200 mg tablet Take 1 tablet by mouth in the morning.Active oxyBUTYnin (Ditropan) 5 mg tablet Take 5 mg by mouth.04/17/2024ctive sulindac (Clinoril) 150 mg tablet Take 150 mg by mouth twice a day.06/05/2024ctive nitroglycerin (Nitrostat) 0.4 mg SL tablet Indications:Coronary artery disease due to lipid rich plaquePlace 1 tablet (0.4 mg) under the tongue every 5 (five) minutes if needed for chest pain. 25 tablet tive rosuvastatin (Crestor) 40 mg tablet Indications:Coronary artery disease due to lipid rich plaqueTake 1 tablet (40 mg) by mouth in the evening. 90 tablet tive Active Problems ProblemNoted DateDiagnosed DateGanglion cyst of tendon sheath of right hand 03/04/2025MI 27.0-27.9,adult02/19/2025Menopausal oanrkfij60/16/2024Swelling of joint, hand, right04/23/2024Urinary fzrhgzygm83/16/2024ecurrent UTI04/23/2024 Urinary tract oxpnpaffd74/16/2024nnual physical exam01/30/20242963Kfhsinj01/24/2024 Hot qjzutve7701/30/2024Skin awystdsbj08/24/2024Vaginal odor01/30/2024Mixed gjdwstxlfohqql02/24/2024 Assessment & Plan (01/30/2024 11:53 AM EDT): Lipid abnormalities are uncontrolled with elevated Chol and LDL- She had stopped crestor 2 months ago I ran out and didn't want to take another pill anyways Reviewed lipid levels from 11/2023 with her and known h/o CAD with ANA LILIA to LAD- D/W importance of lipid management to maintain worsening CAD/Blockage or in stent re-stenosis, Or MO and she voiced understanding and is agreeable to resume crestor 40 mg daily and will add zetia 10 mg daily. Repeat lipid level and LFT in 3 months - she voiced understanding GERD (gastroesophageal reflux disease)01/01/2023Inflammatory polyarthropathy 06/26/2023Primary osteoarthritis of left knee3CAD (coronary artery disease)06/22/2021 Assessment & Plan (01/30/2024 11:56 AM EDT): Coronary artery disease is unchanged. Continue current treatment regimen. Weight loss. Regular aerobic exercise. Medication changes per orders. Cardiac status will be reassessed in 3 months. Continue GDMT- ASA- resume crestor and start zetia for uncontrolled HPL with goal LDL 55-70. Diastolic wwimkbkcmiv86/15/2601Rzgjetwytnrl11/15/2021yspnea on exertion 06/22/2021dema of lower xnqyywlww55/15/2021ssential jreexvqvkhsd62/15/2021 Assessment & Plan (01/30/2024 11:54 AM EDT): Hypertension is unchanged. Dietary sodium restriction. Blood pressure will be reassessed in 3 months. Chest pain03/09/2021Obesity (BMI 30-39.9)06/06/20174407Nrwousob66/23/2017 Overview (06/27/2022): Added automatically from request for surgery [id number] Esotropia, ujpcrnikkcz34/23/2017 Overview (06/27/2022): Added automatically from request for surgery [id number] S/P coronary artery stent tomdmexyp74/25/2014 Assessment & Plan (01/30/2024 11:56 AM EDT): H/O Stent to LAD Medication changes for better HPL management No concerning symptoms noted Statin ziipaqimvsn68/25/2014Congenital adrenal sudnpspnslb07/29/2014 Kzcdkavulwkflpzvgiuf29/29/2014 Assessment & Plan (01/30/2024 11:50 AM EDT): Lipid abnormalities are unchanged. Elevated Pharmacotherapy as ordered. Asked pt to resume crestor and add zetia to regime. Heart healthy diet, low cholesterol and regular exercise and she voiced understanding and agreement Family History Medical HistoryRelationNameCommentsValvular heart diseaseFatherHyperlipidemia MotherRelationNameStatusCommentsFatherMother Social History Tobacco UseTypesPacks/DayYears UsedDateSmoking Tobacco: FormerCigarettesQuit: 2002Smokeless Tobacco: Never Tobacco Cessation:Counseling Given: Not Answered Alcohol UseStandard Drinks/WeekCommentsYes0 (1 standard drink = 0.6 oz pure alcohol)occasionalUT Safety & EnvironmentAnswerDate RecordedFear of Current or Ex-PartnerNot on file08/30/2023Emotionally AbusedNot on file08/30/2023hysically AbusedNot on file08/30/2023Sexually AbusedNot on file08/30/2023hysically or Sexually AbusedNot on file08/30/2023CommentsUnknownSex and Gender InformationValueDate RecordedSex Assigned at TtmxcTjnnto96/25/2025 3:49 PM EDT Legal LsjMmcusj69/29/2022 10:06 PM EDTGender GmwxalpwFtpuey44/25/2025 3:49 PM EDTSexual OrientationHeterosexual or Szypiiwq67/25/2025 3:49 PM EDT Last Filed Vital Signs Vital SignReadingTime TakenCommentsBlood Inbzchew770/72003/04/2025 2:08 PM EDT Gboft892503/04/2025 2:08 PM EDTTemperature--Respiratory Rate--Oxygen Saturation 100%03/04/2025 2:08 PM EDTInhaled Oxygen Concentration--Cjvvim84.6 kg (160 lb) 04/23/2024 11:48 AM IULTqwmzl828.9 cm (5' 1 )04/23/2024 11:48 AM EDTBody Mass Index30.231 11:48 AM EDT Plan of Treatment Health MaintenanceDue DateLast DoneCommentsCT Zksyylclbfxt1963Colonoscopy 1963Colorectal Cancer Ejvnbtgny1963FIT-DNA1963FIT1963 FOBT02/12/19630238Cfeqlnpisqali1963Depression Exhrvvffd62/07/1975Pneumococcal Vaccine: Pediatrics (0 to 5 Years) and At-Risk Patients (6 to 64 Years) (1 of 2 - PCV)1982Pap Smear02/13/1984Adult Dgoqhwu7902/12/1985Cervical Cancer Wsrxpxlqa69/07/1993HPV/Fokarq0302/12/19936367Fpcwxmgsa20/07/2003Zoster Vaccines (1 of 2)2013COVID-19 Vaccine ( season)/, 05/19/2022, 06/24/2021, Additional history existsInfluenza Vaccine (#1) 501/, 05/19/2022HIB VaccinesAged OutNo longer eligible based on patient's age to complete this topicHPV VaccinesAged OutNo longer eligible based on patient's age to complete this topicIPV VaccinesAged OutNo longer eligible based on patient's age to complete this topicMeningococcal B VaccineAged OutNo longer eligible based on patient's age to complete this topicMeningococcal VaccineAged OutNo longer eligible based on patient's age to complete this topic Rotavirus VaccinesAged OutNo longer eligible based on patient's age to complete this topic Insurance Care Teams Team MemberRelationshipSpecialtyStart DateEnd Date Irena Sagastume FNP-C [address] [place] [address] PCP - GeneralNurse Silnbgjunhvy27/16/24
[2025-07-01 08:41] LABS: Thyroid Stimulating Hormone 0.917 uIU/mL (0.358-3.740)
[2025-07-02 04:07] LABS: Sex Horm Binding Glob, Serum 54.2 nmol/L (17.3-125.0)
== END 2025-07-01 07:28 | disposition home or self-care (01) ==
LOC: LAB 07:31
PROVIDERS: PCP Nurse Practitioner; Visit Provider Nurse Practitioner
DX: E34.9 Endocrine disorder, unspecified (principal)
CPT/HCPCS: 36415; 82306; 82533; 82627; 82670; 82679; 84144; 84270; 84402; 84403; 84443